=== PATIENT | female | born 1965 | race Asian ===

== ENCOUNTER 2017-02-26 09:46 | Emergency (ER) | payer OTHER ==
[2017-02-26] MEDS ORDERED: CYCLOBENZAPRINE 10 MG TAB PO ONE (10:26)
[2017-02-26 11:24] VITALS: BP 150/101; PULSE 66; RESP 16; TEMP 98.6; O2SAT 97
[2017-02-26 11:28] LABS: COLOR PALE YELLOW; LEUKOCYTE ESTERASE,URINE NEGATIVE (NEGATIVE); NITRITE,URINE NEGATIVE (NEGATIVE)
--- NOTE | 2017-02-26 11:29 | EDPHY ---
H & P Stated Complaint: back pain Time Seen by Provider: 02/26/17 11:25 HPI/ROS: HPI: A 51-year-old female who presents with Chief Complaint: Lower back pain Location: Right lower back Quality: Aching pain Duration: Since this morning Signs and Symptoms: Positive radiation into right buttock, no incontinence, no dysuria, no history kidney stones, no weakness, no numbness, no tingling, no ataxia Timing: Gradual onset Severity: Moderate Context: Patient reports that her sink is clogged and she was moving buckets of water as well as bending and removing items from underneath the sink yesterday evening. She woke up this morning with an aching sensation in her right lower back that radiated into her right buttocks. No prior history of lower back pain in the past. She was stiff getting out of bed this morning but able to walk to the car and her drove her to the ER for further evaluation. Primary care provider: Clemencia Esparza. Edgardo is irregular and she takes oral control pills; reports compliance. Modifying Factors: Took 2 Aleve this morning without relief Comment: ROS: Constitutional: No fever, no chills, no weight loss Eyes: No blurred vision Respiratory: No shortness of breath, no cough Cardiovascular: No chest pain Gastrointestinal: No nausea, no vomiting no diarrhea Genitourinary: No dysuria Extremities: No myalgias Neurologic: No weakness, no numbness Skin: No rashes Hematologic: No bruising, no bleeding MEDICAL/SURGICAL HISTORY: Hypertension Source: Patient Exam Limitations: No limitations - Personal History Current Tetanus Diphtheria and Acellular Pertussis (TDAP): Yes - Medical/Surgical History Hx Asthma: No Hx Chronic Respiratory Disease: No Hx Diabetes: No Hx Cardiac Disease: No Hx Renal Disease: No Hx Cirrhosis: No Hx Alcoholism: No Hx HIV/AIDS: No Hx Splenectomy or Spleen Trauma: No Other PMH: HTN - Social History Smoking Status: Never smoked - Physical Exam Exam: CONSTITUTIONAL: awake and alert, no obvious distress HEENT: Atraumatic and normocephalic, PERRL, EOMI. Tympanic membranes clear. . Oropharynx clear, no exudate and moist pink mucosa. Airway patent. No lymphadenopathy. No meningismus. Cardiovascular: Normal S1/S2, regular rate, regular rhythm, without murmur rub or gallop. PULMONARY/CHEST: Symmetrical and nontender. Clear to auscultation bilaterally Good air movement. No accessory muscle usage. ABDOMEN: Soft, nondistended, nontender, no rebound, no guarding, no peritoneal signs, no masses or organomegaly. No CVAT. EXTREMITIES: 2/2 pulses, no deformities, no clubbing, no cyanosis or edema. BACK: Right lumbar reproducible paraspinous muscle tenderness; + paraspinous spasm; deep tendon reflexes 2/2. Mild pain with right straight leg raise. No pain with left straight leg raise. Able to walk on heels and toes. Flexion/ extension/rotation decreased and limited secondary to pain. patellar reflexes 2/ 2. NEUROLOGICAL: no focal neuro deficits. GCS 15. SKIN: Warm and dry, no erythema. no rash. Good capillary refill. Constitutional: Initial Vital Signs Temperature (C) 37.2 C 02/26/17 09:53 Heart Rate 77 02/26/17 09:53 Respiratory Rate 18 02/26/17 09:53 Blood Pressure 180/129 H 02/26/17 09:53 O2 Sat (%) 96 02/26/17 09:53 O2 Delivery Mode Room Air Allergies/Adverse Reactions: No Known Drug Allergies Allergy (Verified 02/26/17 11:39) Home Medications: Medication Instructions Recorded Cyclobenzaprine [Flexeril 10 MG 10 mg PO TID PRN #15 tab 02/26/17 (*)] methylPREDNISolone [Medrol Dose 1 each PO AD #0 ea 02/26/17 Ben] Medical Decision Making - Diagnostics Imaging Results: Imaging Impressions Hip X-Ray 02/26/17 10:26 Impression: Degenerative disk disease at L1-L2. Otherwise negative. Pain post bending this morning 2. Right Hip Technique: AP pelvis and frog-leg right hip. Clinical Indications: Pain post bending and lifting this morning. Findings: No fracture is identified. Thickness of the joint is normal, without sclerosis or arthritis. No evidence of avascular necrosis. The SI joints and pubic symphysis look normal. Is no soft tissue calcification or ossification. Impression: Normal. Lumbar Spine X-Ray 02/26/17 10:26 Impression: Degenerative disk disease at L1-L2. Otherwise negative. Pain post bending this morning 2. Right Hip Technique: AP pelvis and frog-leg right hip. Clinical Indications: Pain post bending and lifting this morning. Findings: No fracture is identified. Thickness of the joint is normal, without sclerosis or arthritis. No evidence of avascular necrosis. The SI joints and pubic symphysis look normal. Is no soft tissue calcification or ossification. Impression: Normal. ED Course/Re-evaluation: X-rays, oral medication, urinalysis, urine No signs of neurovascular compromise/cauda equina syndrome/saddle anesthesia Given p.o. Flexeril as patient prefers oral medication trial 1st; moderate relief of symptoms Lumbar x-ray my read shows degenerative disc disease at L1-L2 Right hip x-ray my read shows no fracture; no degeneration; no dislocation Urine negative Urinalysis does not show any signs of infection or blood. will treat for lumbar strain with degenerative disc disease Differential Diagnosis: Back pain including but not limited to muscular pain, herniated disc, spine fracture, intra-abdominal causes and urinary tract infection. - Data Points Laboratory Results: 02/26/17 11:15 Urine Color PALE YELLOW Urine Appearance CLEAR Urine pH 7.0 (5.0-7.5) Ur Specific Mccomb 1.004 (1.002-1.030) Urine Protein NEGATIVE (NEGATIVE) Urine Ketones NEGATIVE (NEGATIVE) Urine Blood NEGATIVE (NEGATIVE) Urine Nitrate NEGATIVE (NEGATIVE) Urine Bilirubin NEGATIVE (NEGATIVE) Urine Urobilinogen NEGATIVE EU EU (0.2-1.0) Ur Leukocyte Esterase NEGATIVE (NEGATIVE) Urine Glucose NEGATIVE (NEGATIVE) Medications Given: Discontinued Medications Cyclobenzaprine HCl (Flexeril) 10 mg PO EDNOW ONE Stop: 02/26/17 10:27 Last Admin: 02/26/17 10:55 Dose: 10 mg Departure - Departure Disposition: Home, Routine, Self-Care Clinical Impression: Degenerative disc disease, lumbar, Lumbar radiculopathy, right Condition: Good Instructions: Low Back Strain (ED), Degenerative Disc Disease (ED) Additional Instructions: Please rest for the next 1-2 days. Take ibuprofen or Aleve as needed for pain and inflammation. Take Flexeril 3 times a day as needed for muscle spasm. His symptoms continue persist or worsen follow-up with primary care provider or nerve surgery as would benefit from MRI lumbar outpatient. Referrals: Han Ramirez MD [Medical Doctor] - 5-7 days, if not improved Prescriptions: Cyclobenzaprine [Flexeril 10 MG (*)] 10 mg PO TID PRN #15 tab PRN Reason: Spasms methylPREDNISolone [Medrol Dose Ben] 1 each PO AD #0 ea
== END 2017-02-26 11:55 | disposition home or self-care (01) ==
LOC: EDUNIT#
DX: M54.16 Radiculopathy, lumbar region (principal); M51.36 Other intervertebral disc degeneration, lumbar region; I10 Essential (primary) hypertension

== ENCOUNTER 2017-05-31 06:06 | Emergency (ER) | payer OTHER ==
[2017-05-31 06:11] VITALS: TEMP 98.2
[2017-05-31] MEDS ORDERED: NS 1,000 ML IV ONE (06:24)
--- NOTE | 2017-05-31 06:28 | EDPHY ---
H & P Stated Complaint: heavey vaginal bleeding, feeling faint Source: Patient Exam Limitations: No limitations - Personal History LMP (Females 10-55): Now Current Tetanus/Diphtheria Vaccine: Yes - Medical/Surgical History Hx Asthma: No Hx Chronic Respiratory Disease: No Hx Diabetes: No Hx Cardiac Disease: No Hx Renal Disease: No Hx Cirrhosis: No Hx Alcoholism: No Hx HIV/AIDS: No Hx Splenectomy or Spleen Trauma: No Other PMH: HTN - Social History Smoking Status: Never smoked Time Seen by Provider: 05/31/17 06:16 HPI/ROS: HPI The patient presents with heavy vaginal bleeding which became worse at about 7: 30 p.m. last night, passing large clots, using about 1 pad per hour to 1.5 hr. At 2:00 a.m., she began to feel faint and lightheaded. She called the on-call OBGYN and was instructed to take norethindrone 5 mg which she did. She has a history of heavy vaginal bleeding in for about 3 months took this dose, 5 mg, then in early April her doctor switched her to norethindrone 0.035 mg. She had her 1st menstrual says. Starting about 10 days ago. The bleeding had been intermittent but not severe until last night. She has no associated pain.. REVIEW OF SYSTEMS Constitutional: No fever, no chills. Eyes: No discharge. ENT: No sore throat. Cardiovascular: No chest pain, no palpitations. Respiratory: No cough, no shortness of breath. Gastrointestinal: No abdominal pain, no vomiting. Genitourinary: No hematuria. Musculoskeletal: No back pain. Skin: No rashes. Neurological: No headache. PMHx: Hypertension Soc Hx: Housed PHYSICAL General Appearance: Alert, no distress Eyes: Pupils equal and round no pallor or injection ENT, Mouth: Mucous membranes moist Respiratory: There are no retractions, lungs are clear to auscultation Cardiovascular: Regular rate and rhythm Gastrointestinal: Abdomen is soft and non-tender, no masses, bowel sounds normal Neurological: A&O, moves all extremities Skin: Warm and dry, no rashes Musculoskeletal: Neck is supple non tender Extremities: symmetrical, full range of motion Psychiatric: Patient is oriented X 3, there is no agitation (Riguzzi,Hyun) Constitutional: Initial Vital Signs Temperature (C) 36.8 C 05/31/17 06:09 Heart Rate 102 H 05/31/17 06:09 Respiratory Rate 16 05/31/17 06:09 Blood Pressure 93/76 L 05/31/17 06:09 O2 Sat (%) 99 05/31/17 06:09 O2 Delivery Mode Room Air Allergies/Adverse Reactions: No Known Drug Allergies Allergy (Verified 05/31/17 06:08) Home Medications: Medication Instructions Recorded Norethindrone 05/31/17 Norethindrone Acetate 5 mg PO DAILY #30 tablet 05/31/17 Medical Decision Making ED Course/Re-evaluation: 7:40 a.m.-ambulated with a steady gait. No dizziness. No active bleeding. discussed with the on-call physician for Dr. Gilbert. Will continue the higher dosing of norethindrone. Rx for Norethindrone 5mg tabs given. f/u in the office. Return for worsening bleeding, any concerns. (Addis Carranza) Differential Diagnosis: 51-year-old female with history of heavy vaginal bleeding, recently on a 3 month course of norethindrone 5 mg, then switched about 1 month ago to 0.035 mg now with her 1st menstrual period starting about 10 days ago with severe bleeding beginning last night. She is using about 1 pad per hour and is passing large clots. She also has some lightheadedness and dizziness. She does not have any shortness of breath. She did take the higher dose norethindrone prior to arrival as instructed by the on-call OBGYN. She feels that this is beginning to work and does not feel any clots currently. On exam, her vital signs are normal, she is generally well-appearing. In the emergency department, patient's vital signs remained stable. She was given a 1 L fluid bolus for her symptoms. CBC was checked and did reveal hemoglobin of 9.6, last on record was from 2013 and was 14. She felt better after a fluid bolus. I feel she can likely go home. I have paged her OBGYN doctor on-call though have not heard back yet. At 7:30 a.m., the case is signed out to Dr. Carranza pending patient is ambulatory trial. If she feels well enough, she can be discharged and continue on the higher dose of her estrogen pill. If she feels dizzy, she may need additional fluid bolus. (Hyun Fitzpatrick) - Data Points Laboratory Results: Laboratory Results 05/31/17 06:20 05/31/17 06:20 05/31/17 05/31/17 05/31/17 06:20 06:20 06:20 WBC 9.38 10^3/uL 10^3/uL (3.80-9.50) RBC 3.09 10^6/uL L 10^6/uL (4.18-5.33) Hgb 9.6 g/dL L g/dL (12.6-16.3) Hct 27.2 % L % (38.0-47.0) MCV 88.0 fL fL (81.5-99.8) MCH 31.1 pg pg (27.9-34.1) MCHC 35.3 g/dL g/dL (32.4-36.7) RDW 14.7 % % (11.5-15.2) Plt Count 265 10^3/uL 10^3/uL (150-400) MPV 11.3 fL fL (8.7-11.7) Neut % (Auto) 74.3 % H % (39.3-74.2) Lymph % (Auto) 17.5 % % (15.0-45.0) Wright % (Auto) 5.5 % % (4.5-13.0) Eos % (Auto) 1.4 % % (0.6-7.6) Baso % (Auto) 0.4 % % (0.3-1.7) Nucleat RBC Rel Count 0.0 % % (0.0-0.2) Absolute Neuts (auto) 6.97 10^3/uL H 10^3/uL (1.70-6.50) Absolute Lymphs (auto) 1.64 10^3/uL 10^3/uL (1.00-3.00) Absolute Monos (auto) 0.52 10^3/uL 10^3/uL (0.30-0.80) Absolute Eos (auto) 0.13 10^3/uL 10^3/uL (0.03-0.40) Absolute Basos (auto) 0.04 10^3/uL 10^3/uL (0.02-0.10) Absolute Nucleated RBC 0.00 10^3/uL 10^3/uL (0-0.01) Immature Gran % 0.9 % % (0.0-1.1) Immature Gran # 0.08 10^3/uL 10^3/uL (0.00-0.10) Sodium 140 mEq/L mEq/L (134-144) Potassium 3.3 mEq/L L mEq/L (3.5-5.2) Chloride 103 mEq/L mEq/L (97-110) Carbon Dioxide 24 mEq/l mEq/l (22-31) Anion Gap 13 mEq/L mEq/L (8-16) BUN 9 mg/dL mg/dL (7-23) Creatinine 0.6 mg/dL mg/dL (0.6-1.0) Estimated GFR > 60 Glucose 120 mg/dL H mg/dL (70-100) Calcium 8.4 mg/dL L mg/dL (8.5-10.4) Beta HCG, Qual NEGATIVE Medications Given: Discontinued Medications Sodium Chloride (Ns) 1,000 mls @ 0 mls/hr IV EDNOW ONE; Wide Open PRN Reason: Protocol Stop: 05/31/17 06:25 Last Admin: 05/31/17 06:31 Dose: 1,000 mls Departure - Departure Disposition: Home, Routine, Self-Care Clinical Impression: Vaginal bleeding Anemia Qualifiers: Anemia type: unspecified type Qualified Code(s): D64.9 - Anemia, unspecified Condition: Good Instructions: Ethinyl Estradiol/Norethindrone Acetate (By mouth), Norethindrone (By mouth), Dysfunctional Uterine Bleeding (ED) Additional Instructions: Please follow-up with your OBGYN in the next 1-2 days. You should return to the emergency department if your bleeding is worse in any way. Please continue to take your iron pills. Referrals: CAROLYN DEL VALLE [Other] - As per Instructions Connie Gilbert MD [Non Staff Provider (MD)] - As per Instructions Prescriptions: Norethindrone Acetate 5 mg PO DAILY #30 tablet
[2017-05-31 06:31] LABS: % IMMATURE GRANULYOCYTES 0.9 % (0.0-1.1); ABSOLUTE IMMATURE GRANULOCYTES 0.08 10^3/uL (0.00-0.10); ADD DIFF? NO; ADD MORPH? NO; ADD SCAN? NO; ATYPICAL LYMPHOCYTE FLAG 0 (0-99); FRAGMENT RBC FLAG 0 (0-99); HEMATOCRIT 27.2 % (38.0-47.0); HEMOGLOBIN 9.6 g/dL (12.6-16.3); LEFT SHIFT FLG 10 (0-99); LIPEMIA HEMOLYSIS FLAG 90 (0-99); MEAN CELL HEMOGLOBIN 31.1 pg (27.9-34.1); MEAN CELL HEMOGLOBIN CONCENTR. 35.3 g/dL (32.4-36.7); MEAN PLATELET VOLUME 11.3 fL (8.7-11.7); PLATELET CLUMPS FLAG 0 (0-99); PLATELET COUNT 265 10^3/uL (150-400); RED BLOOD CELL COUNT 3.09 10^6/uL (4.18-5.33); RED CELL DISTRIBUTION WIDTH 14.7 % (11.5-15.2)
[2017-05-31 06:51] LABS: ANION GAP 13 mEq/L (8-16); CALCIUM 8.4 mg/dL (8.5-10.4); CARBON DIOXIDE 24 mEq/l (22-31); CHLORIDE 103 mEq/L (97-110); CREATININE 0.6 mg/dL (0.6-1.0); GLOMERULAR FILTRATION RATE > 60; GLUCOSE 120 mg/dL (70-100); POTASSIUM 3.3 mEq/L (3.5-5.2); SODIUM 140 mEq/L (134-144)
[2017-05-31 08:09] VITALS: BP 113/82; PULSE 78; RESP 18; O2SAT 97
== END 2017-05-31 08:23 | disposition home or self-care (01) ==
DX: N93.9 Abnormal uterine and vaginal bleeding, unspecified (principal); D64.9 Anemia, unspecified; I10 Essential (primary) hypertension; E86.9 Volume depletion, unspecified

== ENCOUNTER 2017-06-28 19:51 | Emergency (ER) | payer OTHER ==
--- NOTE | 2017-06-28 20:27 | EDPHY ---
H & P Stated Complaint: heavy vaginal bleeding - Personal History Current Tetanus Diphtheria and Acellular Pertussis (TDAP): Yes - Medical/Surgical History Hx Asthma: No Hx Chronic Respiratory Disease: No Hx Diabetes: No Hx Cardiac Disease: No Hx Renal Disease: No Hx Cirrhosis: No Hx Alcoholism: No Hx HIV/AIDS: No Hx Splenectomy or Spleen Trauma: No Other PMH: HTN - Social History Smoking Status: Never smoked Time Seen by Provider: 06/28/17 20:11 HPI/ROS: CHIEF COMPLAINT: Heavy vaginal bleeding, lightheadedness, dyspnea HISTORY OF PRESENT ILLNESS: 51-year-old female arrives via private vehicle complaining heavy vaginal bleeding since last evening. The patient has been evaluated emergency department for similar in the past, most recently approximately 1 month ago. She has history of head vaginal bleeding for the past 4 months, has been on 5 mg of norethindrone, decreased dosage a few months ago. She notes that she has been spotting and bleeding on a near daily basis however last evening and this evening notice passage of large clots and has continued complaints of dizziness, lightheadedness, dyspnea. No syncope. No near syncope. PRIMARY CARE PROVIDER: [facility] REVIEW OF SYSTEMS: A ten point review of systems was performed and is negative with the exception of the items mentioned in the HPI PAST MEDICAL & SURGICAL HISTORY: Prior history of dysfunctional uterine bleeding SOCIAL HISTORY: Nonsmoker [ PHYSICAL EXAM (Prior to examination, patient consented to physical exam, hands were washed and my usual and customary physical exam procedures followed) 1) GENERAL: Well-developed, well-nourished, alert and oriented. Appears to be in no acute distress. 2) HEAD: Normocephalic, atraumatic 3) HEENT: Pupils equal, round, reactive to light bilaterally. Sclera anicteric. Nasopharynx, oropharynx, clear, no lesions. Moist mucous membranes 4) NECK: Full range of motion, no meningeal signs. 5) LUNGS: Clear auscultation bilaterally, no wheezes, no rhonchi, no retractions. 6) HEART: Regular rate and rhythm, no murmur, no heave, no gallop. 7) ABDOMEN: No guarding, no rebound, no focal tenderness, negative McBurney's, negative Thomas's, negative Rovsing's, negative peritoneal sign, 8) MUSCULOSKELETAL: Moving all extremities, no focal areas of tenderness, no obvious trauma. No peripheral edema or discoloration. 9) BACK: No CVA tenderness 10) SKIN: No rash, no petechiae. 11) PELVIC (with female faye Blancas at bedside): Normal female external genitalia, multiple clots at the vaginal introitus, removed revealing no active bleeding. Os closed. . DIFFERENTIAL DIAGNOSIS: In no particular include but limited to ectopic , threatened , dysfunctional uterine bleeding. (Karina Jones) Constitutional: Initial Vital Signs Temperature (C) 37.3 C 06/28/17 20:04 Heart Rate 94 06/28/17 20:04 Respiratory Rate 20 06/28/17 20:04 Blood Pressure 120/99 H 06/28/17 20:04 O2 Sat (%) 99 06/28/17 20:04 O2 Delivery Mode Room Air Allergies/Adverse Reactions: No Known Drug Allergies Allergy (Verified 06/28/17 20:03) Home Medications: Medication Instructions Recorded Norethindrone 05/31/17 Norethindrone Acetate 5 mg PO DAILY #30 tablet 05/31/17 Medical Decision Making ED Course/Re-evaluation: The patient was evaluated and managed by the physician's finance assistant. My cosignature indicates that I reviewed the chart and I agree with the findings and plan of care as documented. I am the secondary supervising physician. ( Magaly Miles) 8:26 p.m.: Old medical records reviewed. Plan will be recheck of H and H, pelvic examination. Care of patient under supervision of secondary supervising physician Dr Miles . 10:40 p.m.: Phone consultation with Dr. Dat Ordonez, on-call OBGYN, was not immediately familiar with this patient's case. Her primary care provider OBGYN are currently unavailable via telephone. He recommended no immediate intervention, recommended contacting the office tomorrow () for further evaluation. No change to medication at this time. There is no indication for admission or transfusion at this time. I discussed this plan with the patient she feels comfortable with this plan. Usual and customary discharge precautions and instructions provided to the patient. (Karina Jones) - Data Points Laboratory Results: Laboratory Results 06/28/17 21:06 06/28/17 21:06 06/28/17 06/28/17 06/28/17 21:06 21:06 21:06 WBC 6.68 10^3/uL 10^3/uL (3.80-9.50) RBC 3.13 10^6/uL L 10^6/uL (4.18-5.33) Hgb 9.8 g/dL L g/dL (12.6-16.3) Hct 30.9 % L % (38.0-47.0) MCV 98.7 fL fL (81.5-99.8) MCH 31.3 pg pg (27.9-34.1) MCHC 31.7 g/dL L g/dL (32.4-36.7) RDW 14.7 % % (11.5-15.2) Plt Count 329 10^3/uL 10^3/uL (150-400) MPV 10.4 fL fL (8.7-11.7) Neut % (Auto) 63.1 % % (39.3-74.2) Lymph % (Auto) 26.6 % % (15.0-45.0) Scurry % (Auto) 7.5 % % (4.5-13.0) Eos % (Auto) 1.9 % % (0.6-7.6) Baso % (Auto) 0.6 % % (0.3-1.7) Nucleat RBC Rel Count 0.0 % % (0.0-0.2) Absolute Neuts (auto) 4.21 10^3/uL 10^3/uL (1.70-6.50) Absolute Lymphs (auto) 1.78 10^3/uL 10^3/uL (1.00-3.00) Absolute Monos (auto) 0.50 10^3/uL 10^3/uL (0.30-0.80) Absolute Eos (auto) 0.13 10^3/uL 10^3/uL (0.03-0.40) Absolute Basos (auto) 0.04 10^3/uL 10^3/uL (0.02-0.10) Absolute Nucleated RBC 0.00 10^3/uL 10^3/uL (0-0.01) Immature Gran % 0.3 % % (0.0-1.1) Immature Gran # 0.02 10^3/uL 10^3/uL (0.00-0.10) Sodium 142 mEq/L mEq/L (134-144) Potassium 3.6 mEq/L mEq/L (3.5-5.2) Chloride 106 mEq/L mEq/L (97-110) Carbon Dioxide 24 mEq/l mEq/l (22-31) Anion Gap 12 mEq/L mEq/L (8-16) BUN 7 mg/dL mg/dL (7-23) Creatinine 0.6 mg/dL mg/dL (0.6-1.0) Estimated GFR > 60 Glucose 103 mg/dL H mg/dL (70-100) Calcium 9.0 mg/dL mg/dL (8.5-10.4) Beta HCG, Qual NEGATIVE Medications Given: Discontinued Medications Sodium Chloride (Ns) 1,000 mls @ 3,000 mls/hr IV ONCE ONE Stop: 06/28/17 21:34 Last Admin: 06/28/17 21:16 Dose: 1,000 mls Departure - Departure Disposition: Home, Routine, Self-Care Clinical Impression: Vaginal bleeding Condition: Good Instructions: Dysfunctional Uterine Bleeding (ED) Additional Instructions: Return to the emergency department if you develop dizziness, fainting or fainting sensation, or any other symptoms that concern you. Referrals: CAROLYN BEEBE [Other] - 1 day without fail
[2017-06-28 21:13] LABS: PLATELET COUNT 329 10^3/uL (150-400)
[2017-06-28] MEDS ORDERED: NS 1,000 ML IV ONE (21:15)
[2017-06-28 22:42] VITALS: RESP 16; O2SAT 98
[2017-06-28 23:02] VITALS: BP 122/90; PULSE 74; TEMP 98.8
== END 2017-06-28 23:01 | disposition home or self-care (01) ==
DX: N93.9 Abnormal uterine and vaginal bleeding, unspecified (principal); I10 Essential (primary) hypertension

== ENCOUNTER 2018-12-18 09:04 | Inpatient (IN) | payer OTHER | END 2018-12-20 12:48 | disposition home or self-care (01) | LOC: F2W 14:51 ==